=== PATIENT | female | born 1985 | race Caucasian/White ===

== ENCOUNTER 2017-07-20 13:37 | Outpatient (CLI) | payer MEDICAID ==
[~2017-07-20 13:37] MED LIST: HYDR-565 PO
[2017-07-20 13:55] VITALS: BP 106/77
== END 2017-07-20 14:53 | disposition home or self-care (01) ==
LOC: ORTHO 13:37
PROVIDERS: ATTEND Nurse Practitioner Family
DX: S52.125A Nondisplaced fracture of head of left radius, initial encounter for closed fracture (principal); W01.0XXA Fall on same level from slipping, tripping and stumbling without subsequent striking against object, initial encounter; Y93.89 Activity, other specified; Y92.89 Other specified places as the place of occurrence of the external cause; Y99.8 Other external cause status
CPT/HCPCS: 99213

== ENCOUNTER 2017-11-07 14:24 | Emergency (ER) | payer MEDICAID ==
[~2017-11-07] VITALS: Ht 170.2 cm; Wt 100.0 kg
[2017-11-07 15:15] LABS: PROTHROMBIN TIME 10.3 SECONDS (9.0-12.0)
[2017-11-07 15:22] LABS: ALANINE AMINOTRANSFERASE 21 U/L (12-78); ALBUMIN 3.6 G/DL (3.4-5.0); ALBUMIN/GLOBULIN RATIO 0.8 (1.1-1.5); ALKALINE PHOSPHATASE 62 IU/L (46-116); ANION GAP 8 (8-16); ASPARTATE AMINO TRANSFERASE 15 U/L (10-37); BILIRUBIN,TOTAL 0.2 MG/DL (0.1-1.0); BLOOD UREA NITROGEN 8 MG/DL (7-18); BUN/CREATININE RATIO 10.3 (6.6-38.0); CALCIUM 8.6 MG/DL (8.5-10.1); CHLORIDE 104 MMOL/L (99-107); CREATININE 0.78 MG/DL (0.40-0.90); GLUCOSE 92 MG/DL (70-104); LIPASE 113 U/L (73-393); POTASSIUM 3.7 MMOL/L (3.5-5.1); SODIUM 137 MMOL/L (135-145); TOTAL PROTEIN 7.9 G/DL (6.4-8.2); eGFR 86 ML/MIN
[2017-11-07 15:27] LABS: BASOPHILS % (AUTO) 0.4 % (0-1); EOSINOPHILS # (AUTO) 0.2 X10'3 (0-0.9); EOSINOPHILS % (AUTO) 2.1 % (0-6); HEMATOCRIT 38.5 % (35.0-45.0); LYMPHOCYTES # (AUTO) 2.5 X10'3 (1.1-4.8); MEAN CORPUSCULAR HEMOGLOBIN 29.6 PG (27.0-31.0); MEAN CORPUSCULAR HGB CONC 33.9 % (33.0-36.5); MEAN CORPUSCULAR VOLUME 87.2 FL (78-98); MEAN PLATELET VOLUME 9.5 FL (7.4-10.4); MONOCYTES # (AUTO) 0.6 X10'3 (0-0.9); MONOCYTES % (AUTO) 6.4 % (2-12); NEUTROPHILS # (AUTO) 6.2 X10'3 (1.8-7.7); NEUTROPHILS % (AUTO) 65.1 % (42-75); PLATELET COUNT 282 X10'3 (140-440); RED BLOOD COUNT 4.41 X10'6 (4.20-5.60); WHITE BLOOD COUNT 9.6 X10'3 (4.5-11.0)
[2017-11-07] MEDS ORDERED: ondansetron 4mg rapidly disintigrating tab PO ONE (15:40)
[2017-11-07 15:49] LABS: CLARITY,URINE CLEAR (Clear); COLOR,URINE YELLOW (Yellow); GLUCOSE, URINE NEGATIVE (Neg); KETONES,URINE NEGATIVE (Neg); LEUKOCYTE ESTERASE ,URINE TRACE (Neg); NITRITES, URINE NEGATIVE (Neg); OCCULT BLOOD,URINE NEGATIVE (Neg); PROTEIN,URINE NEGATIVE (Neg); URINE HCG NEGATIVE (NEG); UROBILINOGEN,URINE 0.2 E.U/dL (0.2-1.0)
[2017-11-07 16:05] LABS: UA COLLECTION TYPE CLN CATCH MIDSTREAM
[2017-11-07 16:06] LABS: BACTERIA,URINE FEW /HPF (Neg); RBC,URINE 0-2 /HPF (0-2); WBC,URINE 0-4 /HPF (0-4)
[2017-11-07 16:07] LABS: SQUAMOUS EPITHELIAL CELL,UR FEW /LPF (FEW)
[2017-11-07 16:32] VITALS: BP 126/75
== END 2017-11-07 16:34 | disposition home or self-care (01) ==
LOC: ER 14:25
DX: K80.20 Calculus of gallbladder without cholecystitis without obstruction (principal)
CPT/HCPCS: 36415; 76700; 80053; 81001; 81025; 83690; 85025; 85610; 87088; 93005; 99285

== ENCOUNTER 2020-07-12 09:12 | Emergency (ER) | payer MEDICAID ==
[~2020-07-12] VITALS: Ht 170.2 cm; Wt 95.5 kg
[2020-07-12] MEDS ORDERED: ketorolac tromethamine 15mg/ml inj. IM ONE (10:30)
--- NOTE | 2020-07-12 11:16 | NUR ---
pt in CT
[2020-07-12] MEDS ORDERED: ondansetron 4mg rapidly disintigrating tab PO ONE (12:05)
[2020-07-12] MEDS ORDERED: HYDROcodone/acetaminophen 5mg/325mg tablet PO ONE (12:05)
[2020-07-12] MEDS ORDERED: ONDA4TAB6 PO (12:44)
[2020-07-12] MEDS ORDERED: HYDR-3965 PO (12:44)
[2020-07-12 12:48] VITALS: BP 144/82
== END 2020-07-12 12:49 | disposition home or self-care (01) ==
LOC: ER 09:12
DX: S32.17XA Type 4 fracture of sacrum, initial encounter for closed fracture (principal); Z79.899 Other long term (current) drug therapy; W19.XXXA Unspecified fall, initial encounter; Y93.89 Activity, other specified; Y92.89 Other specified places as the place of occurrence of the external cause; Y99.8 Other external cause status
CPT/HCPCS: 72131; 96372; 99284; J1885

== ENCOUNTER 2021-07-19 20:29 | Emergency (ER) | payer MEDICAID ==
[~2021-07-19] VITALS: Ht 170.2 cm; Wt 98.0 kg
[~2021-07-19 20:29] MED LIST changes: -HYDR-565 PO; +ONDA4TAB6 PO
[2021-07-19 21:51] VITALS: BP 124/78
== END 2021-07-19 21:57 | disposition home or self-care (01) ==
LOC: ER 20:29
DX: S90.31XA Contusion of right foot, initial encounter (principal); M79.671 Pain in right foot; Z79.899 Other long term (current) drug therapy; X58.XXXA Exposure to other specified factors, initial encounter; Y93.89 Activity, other specified; Y92.89 Other specified places as the place of occurrence of the external cause; Y99.8 Other external cause status
CPT/HCPCS: 73630; 99284

== ENCOUNTER 2024-07-10 19:02 | Emergency (ER) | payer MEDICAID ==
[~2024-07-10] VITALS: Ht 170.2 cm; Wt 100.0 kg
[2024-07-10 19:19] VITALS: BP 149/87; PULSE 77; O2SAT 98
[2024-07-10 19:33] VITALS: RESP 16
[2024-07-10] MEDS: HYDROcodone/acetaminophen 5mg/325mg tablet PO STA (19:33)
--- NOTE | 2024-07-10 20:38 | RADIOLOGY REPORT ---
Clinical History ARM PAIN Comparison None Without Contrast JAIDENFELICIA BARBER, [id number] TECHNIQUE: 2 view of the forearm FINDINGS: There is no acute fracture or dislocation. Joint spaces are preserved. Soft tissue is unremarkable. No radiopaque foreign body seen. IMPRESSION: No acute osseous abnormality. This report was electronically signed by Scotty Hassan MD on 07/10/2024 8:34:29 PM.
[2024-07-10] MEDS ORDERED: IBUP-864 PO (20:50)
--- NOTE | 2024-07-10 20:50 | Physician Documentation ---
History of Present Illness ~ Chief Complaint: Arm Pain Stated Complaint: L ELBOW PAIN Time Seen by MD: 19:55 Primary Medical Doctor: [facility] W[facility] Source: patient Exam Limitations: no limitations HPI 38-year-old female was getting home from work and getting out of the tract tripped over her own foot and fell on her hands and knees. Patient is complaining of left elbow pain but denies hitting the elbow. The patient states that she had a previous fracture about 8 years ago. Patient is complaining of pain and reduced range of motion. No head strike or loss of consciousness. Timing/Duration: hours Circumstances of Injury: fall Tetanus within 5 years: Yes Severity: mild Pain/Injury Location: left arm, left elbow Modifying Factors: improves with: immobilization History Of: fracture Medication Reconciliation Allergies: Coded Allergies: No Known Allergies (Unverified , 07/10/24) Scheduled Ondansetron Hcl (Zofran), 1 TAB PO Q6H Past Medical History Past Medical History: No Pertinent History Past Surgical History: noncontributory Alcohol Use: None Drug Use: none Lives with: Family Lives In: Home Occupation: employed Review of Systems All Other Systems at this time: Reviewed and Negative Musculoskeletal: Reports: see HPI Physical Exam Vital Signs: RN Vital Signs have been reviewed: Yes, Temperature: 98.2, Source: Temporal, Heart Rate: 77, Respiratory Rate: 16, BP: 149/87, Pulse Oximetry: 98, Weight: 100.000 Oxygen Flow Rate: 0 General Appearance: alert, WD/WN, no apparent distress Neck: normal inspection, full range of motion, supple, non-tender Respiratory: lungs clear, normal breath sounds, no respiratory distress Elbow/Forearm: limited ROM, pain, soft tissue tenderness, swelling Wrist: normal inspection, non-tender Hand: normal inspection, non-tender Digit: normal inspection, non-tender Nail: normal inspection Distal Function: normal pulse, normal cap. refill, normal motor function Skin: normal color, warm/dry Progress Results/Orders Results/Orders Orders - DEONNA DIAMOND NP Ortho Orders (07/10/24 20:42) Medications Received in ER Medications (Trade) Dose Ordered Sig/Jessa Route PRN Reason Start Time Stop Time Status Last Admin Dose Admin ([place] 5/325mg tablet) 1 tab ONCE STAT PO 07/10/24 19:24 07/10/24 19:26 DC 07/10/24 19:33 1 TAB Vital Signs 07/10/24 07/10/24 19:19 19:33 Temp 98.2 Pulse 77 Resp 16 16 B/P (MAP) 149/87 Pulse Ox 98 O2 Flow Rate 0 EKG/XRAY/CT/US/VASC/MRI Bone/Soft Tissue X-Ray (Ext.) : Interpreted By: radiologist Additional Comment Patient: FELICIA MONIQUE V Medical Record: [id number] [facility] : 1985, Age: 38 Sex: Female Location: ER Patient Status: REG ER Service Date/Time: 07/10/241923 Ordering Physician: NABIL KABA MD Exam: FOREARM,INCL.ONE JOINT Clinical History ARM PAIN Comparison None Without Contrast FELICIA MONIQUE, [id number] TECHNIQUE: 2 view of the forearm FINDINGS: There is no acute fracture or dislocation. Joint spaces are preserved. Soft tissue is unremarkable. No radiopaque foreign body seen. IMPRESSION: No acute osseous abnormality. Medical Decision Making General Diff Dx:Considerations: Include: Abrasion, Contusion, Fracture, Sprain Departure Time of Disposition: 20:48 Disposition: 01 HOME / SELF CARE / HOMELESS Impression: Primary Impression: Elbow strain Condition: Stable Discharge Instructions: Extremity Fracture, Sprain, [id number] Additional Instructions: As discussed during our encounter follow-up with [facility] currently the radiologist reports does not indicate fracture but there can be a hairline fracture and with your symptoms including pain and reduced range of motion we will treat like a fracture until otherwise discussed with orthopedics. Follow- up with primary care within the next few days as well. Referrals: NO PRIMARY CARE PROVIDER (PCP) [facility] Prescriptions Ibuprofen (Ibu) 800 Mg Tablet 1 TAB PO Q8H for 7 Days, #21 TAB 0 Refills Prov: DEONNA DIAMOND NP 07/10/24 Education Educated: Patient, Family Educated regarding: diagnosis, treatment, need for follow up Signature Scribe Signature: No Scribe Attestation: The note accurately reflects work and decisions made by me.Deonna Diamond - CLIN NURSE SPEC 07/10/24 20:51 DEONNA DIAMOND NP July 10, 2024 20:50
[2024-07-10 21:11] VITALS: TEMP 98.2
== END 2024-07-10 21:13 | disposition home or self-care (01) ==
LOC: ER 19:02
DX: S66.812A Strain of other specified muscles, fascia and tendons at wrist and hand level, left hand, initial encounter (principal); Z79.899 Other long term (current) drug therapy; W01.0XXA Fall on same level from slipping, tripping and stumbling without subsequent striking against object, initial encounter; Y93.89 Activity, other specified; Y92.89 Other specified places as the place of occurrence of the external cause; Y99.8 Other external cause status
CPT/HCPCS: 29105; 73090; 99283; A4565; A6446; A6449